=== PATIENT | male | born 1965 | race Caucasian/White ===

== ENCOUNTER 2016-10-14 09:18 | Emergency (ER) | payer BC ==
[~2016-10-14] VITALS: Ht 180.3 cm; Wt 130.0 kg
[2016-10-14 09:19] VITALS: BP 154/93; PULSE 52; RESP 24; TEMP 98.3; O2SAT 98
[2016-10-14] MEDS ORDERED: METO50TA11 PO (09:30)
[2016-10-14] MEDS ORDERED: SIMV20TA PO (09:31)
[2016-10-14] MEDS ORDERED: COMB0.2S EACH EYE (09:31)
[2016-10-14] MEDS ORDERED: LATA0.002 EACH EYE (09:31)
[2016-10-14] MEDS ORDERED: TYLETAB34 PO (09:31)
[2016-10-14] MEDS ORDERED: PROPARACAINE HCL 0.5% OPHT SOLN 15 ML BTL EACH EYE ONE (09:45)
[2016-10-14] MEDS ORDERED: KETOROLAC TROMETHAMINE 30 MG/ML (IVP) VIAL IV PUSH ONE (09:45)
[2016-10-14] MEDS ORDERED: PROCHLORPERAZINE INJ 10 MG/2 ML VIAL IV PUSH ONE (09:45)
[2016-10-14] MEDS ORDERED: SODIUM CHLOR 0.9% 1000 ML INJ 1,000 ML IV ONE (09:45)
[2016-10-14 10:22] LABS: AUTOMATED NEUTROPHIL # 7.3 TH/MM3 (1.8-7.7); BASOPHIL % 0.5 % (0.0-2.0); EOSINOPHIL % 0.2 % (0.0-4.0); HEMATOCRIT 47.8 % (39.0-51.0); HEMO FLAGS DIFF FINAL; LYMPH % 18.6 % (9.0-44.0); LYMPHOCYTE # 1.9 TH/MM3 (1.0-4.8); MEAN CELL VOLUME 91.7 FL (80.0-100.0); MEAN CORPUSCULAR HGB CONC 34.9 % (32.0-36.0); NEUT % 73.7 % (16.0-70.0); PLATELET COUNT 269 TH/MM3 (150-450); RED BLOOD COUNT 5.22 MIL/MM3 (4.50-5.90); RED CELL DISTRIBUTION WIDTH 12.9 % (11.6-17.2)
[2016-10-14 10:25] LABS: ALT (GPT) 36 U/L (12-78)
[2016-10-14 10:27] LABS: ALKALINE PHOSPHATASE 67 U/L (45-117); TOTAL BILIRUBIN ADULT 0.8 MG/DL (0.2-1.0)
[2016-10-14 10:28] LABS: ANION GAP 8 MEQ/L (5-15); AST (GOT) 21 U/L (15-37); BICARBONATE 25.6 MEQ/L (21.0-32.0); BLOOD UREA NITROGEN 13 MG/DL (7-18); CHLORIDE 104 MEQ/L (98-107); GLOMERULAR FILTRATION RATE 60 ML/MIN (>89); SODIUM (NA) 138 MEQ/L (136-145)
[2016-10-14 10:30] LABS: POTASSIUM 4.1 MEQ/L (3.5-5.1)
[2016-10-14] MEDS ORDERED: BUTA1CAP PO (11:32)
--- NOTE | 2016-10-14 11:33 | PD ---
HPI Chief Complaint: Headache Time Seen by Provider: 09:30 Travel History International Travel<30 days: No Contact w/Intl Traveler<30days: No Traveled to known affect area: No History of Present Illness HPI Patient is a 51-year-old male who comes in complaining of severe headache. He has history of glaucoma and has been having issues with the pressures in his eyes for about the past 9 weeks. He says it started with a severe headache 10 weeks ago, he went to see his doctor and was found to have elevated pressures in his eyes. His eyedrops were switched and these seem to be controlling his pressure is better. He says he went to the eye doctor last week and the pressure in his right eye was 22 and the pressures left eye was 20. He says that he still having severe headaches. He was given Tylenol threes from his primary doctor, but he says this is not helping. He has an appointment with neurology when he gets back home, he is currently on vacation. He denies any worsening of his vision. He denies any fever or chills. He denies any vomiting. [facility] Past Medical History High Cholesterol: Yes Glaucoma: Yes Headaches: Yes Hypertension: Yes Past Surgical History Abdominal Surgery: Yes (hernia) Social History Alcohol Use: No Tobacco Use: No Substance Use: No Allergies-Medications (Allergen,Severity, Reaction): Coded Allergies: No Known Allergies (Unverified , 10/14/16) Reported Meds & Prescriptions Reported Meds & Active Scripts Active Reported Latanoprost Opth Drops (Latanoprost) 0.005% Drops 1 Drop EACH EYE HS Refrigerate until opened. Combigan Opth Drops (Brimonidine-Timolol Opth Drops) 0.2-0.5% Soln 1 Drop EACH EYE Q12HR Simvastatin 20 Mg Tab 20 Mg PO DAILY Tylenol-Codeine #3 (Acetaminophen-Codeine) 300-30 mg Tab 1-2 Tab PO Q6H PRN Metoprolol Succinate ER 24 HR (Metoprolol Succinate) 50 Mg Tab 50 Mg PO HS Review of Systems Except as stated in HPI: all other systems reviewed are Neg General / Constitutional: No: Fever, Chills Eyes: Positive: Blurred Vision HENT: Positive: Headaches Cardiovascular: No: Chest Pain or Discomfort Respiratory: No: Shortness of Breath Gastrointestinal: No: Vomiting, Abdominal Pain Skin: No Change in Pigmentation Neurologic: No: Weakness, Dizziness, Sensory Disturbance Physical Exam Narrative GENERAL: Awake and alert, in no acute distress. SKIN: Focused skin assessment warm/dry. HEAD: Atraumatic. Normocephalic. EYES: Pupils equal and round and reactive. No scleral icterus. Extraocular movements intact. ENT: Mucous membranes pink and moist. NECK: Trachea midline. No JVD. No cervical spine tenderness. No meningeal signs. CARDIOVASCULAR: Regular rate and rhythm. No murmur appreciated. RESPIRATORY: No accessory muscle use. Clear to auscultation. Breath sounds equal bilaterally. MUSCULOSKELETAL: No obvious deformities. No clubbing. No cyanosis. No edema. NEUROLOGICAL: Awake and alert. No obvious cranial nerve deficits. Motor grossly within normal limits. Normal speech. PSYCHIATRIC: Appropriate mood and affect; insight and judgment normal. Data Data Last Documented VS Vital Signs Date Time Temp Pulse Resp B/P Pulse Ox O2 Delivery O2 Flow Rate FiO2 10/14/16 09:19 98.3 52 24 154/93 98 Room Air Orders Iv Access Insert/Monitor (10/14/16 09:40) Complete Blood Count With Diff (10/14/16 09:40) Comprehensive Metabolic Panel (10/14/16 09:40) Sodium Chlor 0.9% 1000 Ml Inj (Ns 1000 M (10/14/16 09:45) Prochlorperazine Inj (Compazine Inj) (10/14/16 09:45) Ketorolac Inj (Toradol Inj) (10/14/16 09:45) Proparacaine 0.5% Opth Soln (Alcaine 0.5 (10/14/16 09:45) Labs Laboratory Tests Test 10/14/16 09:50 White Blood Count 10.0 TH/MM3 Red Blood Count 5.22 MIL/MM3 Hemoglobin 16.7 GM/DL Hematocrit 47.8 % Mean Corpuscular Volume 91.7 FL Mean Corpuscular Hemoglobin 32.0 PG Mean Corpuscular Hemoglobin 34.9 % Concent Red Cell Distribution Width 12.9 % Platelet Count 269 TH/MM3 Mean Platelet Volume 8.7 FL Neutrophils (%) (Auto) 73.7 % Lymphocytes (%) (Auto) 18.6 % Monocytes (%) (Auto) 7.0 % Eosinophils (%) (Auto) 0.2 % Basophils (%) (Auto) 0.5 % Neutrophils # (Auto) 7.3 TH/MM3 Lymphocytes # (Auto) 1.9 TH/MM3 Monocytes # (Auto) 0.7 TH/MM3 Eosinophils # (Auto) 0.0 TH/MM3 Basophils # (Auto) 0.0 TH/MM3 CBC Comment DIFF FINAL Differential Comment Sodium Level 138 MEQ/L Potassium Level 4.1 MEQ/L Chloride Level 104 MEQ/L Carbon Dioxide Level 25.6 MEQ/L Anion Gap 8 MEQ/L Blood Urea Nitrogen 13 MG/DL Creatinine 1.26 MG/DL Estimat Glomerular Filtration 60 ML/MIN Rate Random Glucose 117 MG/DL Calcium Level 9.6 MG/DL Total Bilirubin 0.8 MG/DL Aspartate Amino Transf 21 U/L (AST/SGOT) Alanine Aminotransferase 36 U/L (ALT/SGPT) Alkaline Phosphatase 67 U/L Total Protein 7.6 GM/DL Albumin 4.0 GM/DL MDM Medical Decision Making Medical Screen Exam Complete: Yes Emergency Medical Condition: Yes Differential Diagnosis migraine vs glaucoma vs dehydration vs tension headache. Narrative Course Patient is a 51-year-old male comes in complaining of a headache. Exam shows no neurologic abnormalities. Pressure measured by James-Pen in the right eye is 27, left eye is 18. IV established, labs sent. Labs show no acute abnormalities. Patient given IV fluids, Toradol, Compazine. He reports feeling better. He'll be discharged with prescription for Fioricet. He is advised to keep his follow-up appointments. Advised to continue using his glaucoma drops as directed. Advised to return to the emergency department as needed for any worsening symptoms. Diagnosis Primary Impression: Headache Qualified Code: R51 - Acute nonintractable headache, unspecified headache type Patient Instructions: Acute Headache (ED), General Instructions Additional Instructions: Drink plenty of fluids. He can take ibuprofen for headaches. Take the Fioricet as needed for severe pain. Because was this medication may make you sleepy. Follow up with her doctors. Return to the emergency department as needed for any worsening symptoms. Scripts Ipjqbtglrj-Tnmevclwsnmao-Iohmeejl (Fioricet)50-300-40 Mg Cap1 Cap PO Q4H PRN ( HEADACHE) #15 CAP Ref 0 Prov:Anila Stovall MD 10/14/16 Disposition: DISCHARGE HOME Condition: Stable Anila Stovall MD Oct 14, 2016 11:32
== END 2016-10-14 11:48 | disposition home or self-care (01) ==
LOC: NEPD 09:18
DX: R51 Headache (principal); H53.8 Other visual disturbances; E78.00 Pure hypercholesterolemia, unspecified; H40.9 Unspecified glaucoma; I10 Essential (primary) hypertension; Z79.899 Other long term (current) drug therapy
CPT/HCPCS: 80053; 85025; 96361; 96374; 96375; 99284; J0780; J1885; J7030